=== PATIENT | female | born 1955 | race Caucasian/White ===

== ENCOUNTER 2020-02-07 12:50 | Inpatient (IN) ==
[2020-02-07] MEDS ORDERED: SODIUM CHLORIDE 0.9% 1,000 ML IV STA ×2 (13:20→14:26)
[2020-02-07 13:43] LABS: Basophils # 0.1 10*3/uL (0.0-0.2); Basophils % 0.6 % (0.0-0.8); Eosinophils # 0.3 10*3/uL (0.0-0.87); Eosinophils % 2.1 % (0.00-10.9); Hematocrit 32.6 VOL% (35.7-47.0); Hemoglobin 10.6 GM/DL (12.0-16.0); Immature Granulocytes % 0.8 %; Lymphocytes # 2.7 10*3/uL (1.4-4.0); Lymphocytes % 21.5 % (21.3-54.2); Mean Corpuscular HGB Conc 32.5 GM/DL (32-36); Mean Corpuscular Volume 88.3 FL (87-102); Mean Platelet Volume 8.6 FL (9.6-12.0); Monocytes % 7.8 % (1.7-12.7); Neutrophils % 67.2 % (38.7-73.9); Platelet Count 406 T/CUMM (130-400); Red Blood Count 3.69 MC/CUMM (3.8-5.5); White Blood Count 12.6 T/CUMM (4-12)
[2020-02-07 14:02] LABS: INR 1.3; Partial Thromboplastin Time 30.7 SECS (23.9-33.8)
[2020-02-07 14:16] LABS: Albumin 1.9 G/DL (3.4-5.0); Bilirubin,Total 0.6 MG/DL (0.2-1.0); Calcium 8.8 MG/DL (8.5-10.1); Osmolality,Calculated 273.1 MOS/KG (273-304); Thyroid Stimulating Hormone 8.5 uIU/ml (0.358-3.74); Total Protein 6.9 G/DL (6.4-8.3)
[2020-02-07 14:33] LABS: Bilirubin,Urine Negative (Negative); Blood, Urine Small mg/dL (Negative); Glucose,Urine (UA) Negative (Negative); Ketones,Urine Negative (Negative); Nitrite,Urine Negative (Negative); Protein,Urine 100 MG/DL; Urine Appearance CLOUDY (Clear); Urine Color Yellow (Yellow); Urine Urobilinogen < 2.0 EU/DL (0.2-1.0); WBC,Urine 2135 /HPF (0-6)
[2020-02-07] MEDS ORDERED: cefTRIAXone 1,000 MG in SODIUM CHLORIDE 0.9% 100 ML IV STA (14:43)
[2020-02-07] MEDS ORDERED: DEXTROSE 50% 25 GM/50 ML VIAL IV STA (14:45)
[2020-02-07] MEDS ORDERED: INSULIN REGULAR 100 UNIT/ML IV STA (14:46)
[2020-02-07] MEDS ORDERED: SODIUM BICARBONATE 50 MEQ/50 ML VIAL IV STA (14:47)
[2020-02-07] MEDS ORDERED: CALCIUM CHLORIDE 1,000 MG/10 ML SYRINGE IV STA (14:47)
[2020-02-07 14:48] LABS: Barbiturates Screen,Urine Negative (Negative); Benzodiazepines Screen,Urine Negative (Negative); Cannabinoid Screen,Urine Negative (Negative); Opiate Screen,Urine Negative (Negative); Phencyclidine Screen,Urine Negative (Negative)
[2020-02-07] MEDS ORDERED: DEXTROSE 50% 25 GM/50 ML SYRINGE IV ONE (15:05)
[2020-02-07] MEDS ORDERED: COSYNTROPIN 0.25 MG VIAL IV ONE (15:15)
[2020-02-07] MEDS ORDERED: DEXTROSE 50% 25 GM/50 ML VIAL IV PRN (15:18)
[2020-02-07] MEDS ORDERED: ACETAMINOPHEN 325 MG TABLET PO PRN (15:20)
[2020-02-07 15:47] LABS: Free T4 (Free Thyroxine) 1.38 NG/DL (0.76-1.46)
[2020-02-07] MEDS ORDERED: ENOXAPARIN 40 MG/0.4 ML SYRINGE SUBCUT SCH (16:00)
[2020-02-07] MEDS: SODIUM CHLORIDE 0.9% 1,000 ML IV SCH (17:20)
[2020-02-07] MEDS: HYDROCORTISONE 100 MG VIAL IV SCH (17:25)
[2020-02-07] MEDS ORDERED: HYDROCORTISONE 100 MG VIAL ONE (17:28)
[2020-02-07] MEDS ORDERED: INFLUENZA VIRUS VACCINE 0.5 ML SYRINGE IM ONE (18:00)
[2020-02-07 20:34] LABS: Calcium 8.9 MG/DL (8.5-10.1)
[2020-02-08] MEDS: HYDROCORTISONE 100 MG VIAL IV SCH (02:15)
[2020-02-08] MEDS: SODIUM CHLORIDE 0.9% 1,000 ML IV SCH ×4 (02:39→11:30)
[2020-02-08] MEDS ORDERED: SODIUM CHLORIDE 0.9% 1,000 ML IV ONE (03:00)
[2020-02-08 04:26] LABS: Basophils % 0.2 % (0.0-0.8); Hematocrit 31.1 VOL% (35.7-47.0); Hemoglobin 9.5 GM/DL (12.0-16.0); Immature Granulocytes % 0.9 %; Immature Granulocytes Absolute 0.08 #; Lymphocytes # 1.5 10*3/uL (1.4-4.0); Lymphocytes % 17.6 % (21.3-54.2); Mean Corpuscular HGB Conc 30.5 GM/DL (32-36); Mean Corpuscular Volume 92.3 FL (87-102); Mean Platelet Volume 8.7 FL (9.6-12.0); Monocytes % 2.5 % (1.7-12.7); Neutrophils % 78.8 % (38.7-73.9); Platelet Count 404 T/CUMM (130-400); Red Blood Count 3.37 MC/CUMM (3.8-5.5); Red Cell Distribution Width 17.3 % (9.3-17.3); White Blood Count 8.5 T/CUMM (4-12)
[2020-02-08 04:52] LABS: Calcium 8.5 MG/DL (8.5-10.1)
[2020-02-08] MEDS ORDERED: MAGNESIUM SULF RIDER 4 GM in PREMIX 1 EACH IV PRN (08:10)
[2020-02-08] MEDS ORDERED: SODIUM POLYSTYRENE SULFATE 15 GM/60 ML BOTTLE PO ONE (08:30)
[2020-02-08] MEDS ORDERED: cefTRIAXone 2,000 MG in SYRINGE 1 EACH IV SCH (09:00)
[2020-02-08] MEDS: INSULIN LISPRO 100 UNIT/ML SUBCUT SCH ×3 (12:02→21:14)
[2020-02-08] MEDS: ONDANSETRON 4 MG/2 ML VIAL IV PRN (13:37)
[2020-02-08] MEDS: PIPERACILLIN/TAZOBACTAM 3,375 MG in SODIUM CHLORIDE 0.9% 100 ML IV SCH ×2 (13:38→21:13)
[2020-02-08] MEDS: MAGNESIUM SULF RIDER 2 GM in PREMIX 1 EACH IV PRN (13:39)
[2020-02-08] MEDS ORDERED: PHENYLEPHRINE DRIP 40 MG/250 ML PREMIX IV ONE (15:03)
[2020-02-08] MEDS: SODIUM BICARB INJ 50 MEQ in SODIUM CHLORIDE 0.45% 1,000 ML IV SCH (15:22)
[2020-02-08] MEDS: PHENYLEPHRINE DRIP 40 MG/250 ML PREMIX IV PRN (15:27)
[2020-02-08] MEDS ORDERED: ENOXAPARIN 30 MG/0.3 ML SYRINGE SUBCUT SCH (16:00)
[2020-02-08] MEDS: ALBUTEROL 2.5 MG/3 ML NEB RESP TX PRN (19:56)
[2020-02-08] MEDS: DESITIN 4OZ/NYSTATIN 15 GRAM MIXTURE PASTE TOP SCH (21:13)
[2020-02-09] MEDS: SODIUM BICARB INJ 50 MEQ in SODIUM CHLORIDE 0.45% 1,000 ML IV SCH ×2 (01:32→12:17)
[2020-02-09] MEDS: ALBUTEROL 2.5 MG/3 ML NEB RESP TX PRN (03:52)
[2020-02-09] MEDS: PIPERACILLIN/TAZOBACTAM 3,375 MG in SODIUM CHLORIDE 0.9% 100 ML IV SCH ×3 (04:19→21:35)
[2020-02-09 04:50] LABS: Calcium 8.1 MG/DL (8.5-10.1); Osmolality,Calculated 281.1 MOS/KG (273-304)
[2020-02-09] MEDS: PHENYLEPHRINE DRIP 40 MG/250 ML PREMIX IV PRN (04:50)
[2020-02-09 05:02] LABS: Basophils % 0.2 % (0.0-0.8); Eosinophils # 0.1 10*3/uL (0.0-0.87); Eosinophils % 0.5 % (0.00-10.9); Hematocrit 28.4 VOL% (35.7-47.0); Hemoglobin 9.1 GM/DL (12.0-16.0); Immature Granulocytes % 0.7 %; Immature Granulocytes Absolute 0.07 #; Lymphocytes # 2.4 10*3/uL (1.4-4.0); Lymphocytes % 25.4 % (21.3-54.2); Mean Corpuscular Volume 89.6 FL (87-102); Mean Platelet Volume 8.6 FL (9.6-12.0); Monocytes % 6.8 % (1.7-12.7); Neutrophils % 66.4 % (38.7-73.9); Platelet Count 403 T/CUMM (130-400); Red Blood Count 3.17 MC/CUMM (3.8-5.5); Red Cell Distribution Width 17.2 % (9.3-17.3); White Blood Count 9.4 T/CUMM (4-12)
[2020-02-09] MEDS: MAGNESIUM SULF RIDER 2 GM in PREMIX 1 EACH IV PRN (08:20)
[2020-02-09] MEDS: INSULIN LISPRO 100 UNIT/ML SUBCUT SCH ×4 (08:52→22:03)
[2020-02-09] MEDS: DESITIN 4OZ/NYSTATIN 15 GRAM MIXTURE PASTE TOP SCH ×2 (09:02→21:21)
[2020-02-09] MEDS ORDERED: FUROSEMIDE 40 MG/4 ML VIAL IV ONE (10:02)
[2020-02-09] MEDS ORDERED: DILTIAZEM 50 MG/10 ML VIAL IV ONE ×2 (13:35)
[2020-02-09] MEDS ORDERED: DILTIAZEM 25 MG/5 ML VIAL IV ONE (13:39)
[2020-02-09] MEDS: CITALOPRAM 20 MG TABLET PO SCH ×2 (14:28→21:21)
[2020-02-09] MEDS: dilTIAZem Drip 125 MG/125 ML PREMIX IV SCH (14:34)
[2020-02-09] MEDS: NICOTINE 21 MG/24 HR PATCH TRANSDERM SCH (16:20)
[2020-02-09] MEDS ORDERED: DIGOXIN 0.5 MG/2 ML AMP IV ONE (16:50)
[2020-02-09] MEDS: METOPROLOL TARTRATE 25 MG TABLET PO SCH ×2 (17:32→21:21)
[2020-02-09] MEDS ORDERED: LEVALBUTEROL 1.25 MG/3 ML NEB RESP TX PRN (19:16)
[2020-02-09] MEDS: APIXABAN 5 MG TABLET PO SCH (21:21)
[2020-02-10] MEDS: dilTIAZem Drip 125 MG/125 ML PREMIX IV SCH (04:00)
[2020-02-10 04:26] LABS: Basophils % 0.3 % (0.0-0.8); Eosinophils # 0.1 10*3/uL (0.0-0.87); Eosinophils % 0.9 % (0.00-10.9); Hematocrit 27.1 VOL% (35.7-47.0); Hemoglobin 8.8 GM/DL (12.0-16.0); Immature Granulocytes % 0.5 %; Immature Granulocytes Absolute 0.04 #; Lymphocytes # 1.9 10*3/uL (1.4-4.0); Lymphocytes % 23.1 % (21.3-54.2); Mean Corpuscular HGB Conc 32.5 GM/DL (32-36); Mean Corpuscular Volume 87.1 FL (87-102); Mean Platelet Volume 8.4 FL (9.6-12.0); Monocytes % 6.6 % (1.7-12.7); Neutrophils % 68.6 % (38.7-73.9); Platelet Count 348 T/CUMM (130-400); Red Blood Count 3.11 MC/CUMM (3.8-5.5); Red Cell Distribution Width 17.1 % (9.3-17.3)
[2020-02-10 04:34] LABS: Alanine Aminotransferase < 9 U/L (13-56); Albumin 1.4 G/DL (3.4-5.0); Alkaline Phosphatase 47 U/L (45-117); Aspartate Amino Transferase 10 U/L (0-37); Blood Urea Nitrogen 36 MG/DL (7-18); Calcium 8.2 MG/DL (8.5-10.1); Estimated Glom Filtration Rate 42 ML/MIN; Glucose 135 MG/DL (74-106); Osmolality,Calculated 284.7 MOS/KG (273-304); Total Protein 5.4 G/DL (6.4-8.3)
[2020-02-10] MEDS: SKIN HEALING OINT (AQUAPHOR) 50 GM TUBE TOP PRN ×3 (06:25→21:16)
[2020-02-10] MEDS: PIPERACILLIN/TAZOBACTAM 3,375 MG in SODIUM CHLORIDE 0.9% 100 ML IV SCH ×2 (06:35→13:06)
[2020-02-10] MEDS: INSULIN LISPRO 100 UNIT/ML SUBCUT SCH ×4 (07:16→21:08)
[2020-02-10] MEDS: MAGNESIUM SULF RIDER 2 GM in PREMIX 1 EACH IV PRN (09:34)
[2020-02-10] MEDS: POTASSIUM CHLORIDE 20 MEQ TABLET PO PRN ×4 (09:34→17:18)
[2020-02-10] MEDS: METOPROLOL TARTRATE 25 MG TABLET PO SCH (09:35)
[2020-02-10] MEDS: APIXABAN 5 MG TABLET PO SCH ×2 (09:35→21:07)
[2020-02-10] MEDS: NICOTINE 21 MG/24 HR PATCH TRANSDERM SCH (09:35)
[2020-02-10] MEDS: CITALOPRAM 20 MG TABLET PO SCH ×2 (09:35→21:07)
[2020-02-10] MEDS: DESITIN 4OZ/NYSTATIN 15 GRAM MIXTURE PASTE TOP SCH ×2 (09:36→21:18)
[2020-02-10] MEDS: ONDANSETRON 4 MG/2 ML VIAL IV PRN (09:43)
[2020-02-10] MEDS ORDERED: PHENYLEPHRINE DRIP 40 MG/250 ML PREMIX IV PRN (10:18)
[2020-02-10] MEDS ORDERED: DIGOXIN 0.125 MG TABLET PO SCH (13:00)
[2020-02-10] MEDS ORDERED: dilTIAZem INJ 125 MG in SODIUM CHLORIDE 0.9% 125 MG/100 ML BAG IV SCH (14:00)
[2020-02-10] MEDS: FENOFIBRATE 145 MG TABLET PO SCH (16:13)
[2020-02-10] MEDS: MORPHINE 4 MG/1 ML VIAL IV PRN ×2 (16:13→21:04)
[2020-02-10] MEDS: SIMVASTATIN 20 MG TABLET PO SCH (16:13)
[2020-02-10] MEDS ORDERED: LEVOFLOXACIN INJ 500 MG in PREMIX 1 EACH IV ONE (17:00)
[2020-02-10] MEDS: METOPROLOL TARTRATE 50 MG TABLET PO SCH (21:07)
[2020-02-10] MEDS: VANCOMYCIN INJ 1,250 MG in SODIUM CHLORIDE 0.9% 250 ML IV SCH (21:08)
[2020-02-11 04:13] LABS: Basophils # 0.1 10*3/uL (0.0-0.2); Basophils % 0.7 % (0.0-0.8); Eosinophils # 0.2 10*3/uL (0.0-0.87); Eosinophils % 2.3 % (0.00-10.9); Hematocrit 29.6 VOL% (35.7-47.0); Hemoglobin 9.4 GM/DL (12.0-16.0); Immature Granulocytes % 0.6 %; Immature Granulocytes Absolute 0.04 #; Lymphocytes # 1.8 10*3/uL (1.4-4.0); Lymphocytes % 25.7 % (21.3-54.2); Mean Corpuscular HGB Conc 31.8 GM/DL (32-36); Mean Corpuscular Volume 88.9 FL (87-102); Mean Platelet Volume 8.5 FL (9.6-12.0); Monocytes % 7.9 % (1.7-12.7); Neutrophils % 62.8 % (38.7-73.9); Platelet Count 353 T/CUMM (130-400); Red Blood Count 3.33 MC/CUMM (3.8-5.5); Red Cell Distribution Width 17.6 % (9.3-17.3); White Blood Count 6.9 T/CUMM (4-12)
[2020-02-11 04:53] LABS: Calcium 8.3 MG/DL (8.5-10.1); Osmolality,Calculated 278.8 MOS/KG (273-304)
[2020-02-11] MEDS: INSULIN LISPRO 100 UNIT/ML SUBCUT SCH ×4 (08:00→20:57)
[2020-02-11] MEDS: DIGOXIN 0.125 MG TABLET PO SCH (10:11)
[2020-02-11] MEDS: METOPROLOL TARTRATE 50 MG TABLET PO SCH ×2 (10:11→20:58)
[2020-02-11] MEDS: CITALOPRAM 20 MG TABLET PO SCH ×2 (10:11→20:58)
[2020-02-11] MEDS: NICOTINE 21 MG/24 HR PATCH TRANSDERM SCH (10:11)
[2020-02-11] MEDS: APIXABAN 5 MG TABLET PO SCH ×2 (10:11→20:57)
[2020-02-11] MEDS: DESITIN 4OZ/NYSTATIN 15 GRAM MIXTURE PASTE TOP SCH ×2 (10:13→20:59)
[2020-02-11] MEDS: LEVOFLOXACIN INJ 250 MG in PREMIX 1 EACH IV SCH (17:43)
[2020-02-11] MEDS: FENOFIBRATE 145 MG TABLET PO SCH (17:43)
[2020-02-11] MEDS: SIMVASTATIN 20 MG TABLET PO SCH (17:43)
[2020-02-11] MEDS: VANCOMYCIN INJ 1,250 MG in SODIUM CHLORIDE 0.9% 250 ML IV SCH (20:58)
[2020-02-11] MEDS: SKIN HEALING OINT (AQUAPHOR) 50 GM TUBE TOP PRN (20:59)
[2020-02-12 04:40] LABS: Basophils # 0.1 10*3/uL (0.0-0.2); Basophils % 0.9 % (0.0-0.8); Eosinophils # 0.2 10*3/uL (0.0-0.87); Eosinophils % 3.1 % (0.00-10.9); Hematocrit 28.6 VOL% (35.7-47.0); Hemoglobin 9.2 GM/DL (12.0-16.0); Immature Granulocytes % 0.6 %; Immature Granulocytes Absolute 0.04 #; Lymphocytes # 2.3 10*3/uL (1.4-4.0); Lymphocytes % 36.4 % (21.3-54.2); Mean Corpuscular HGB Conc 32.2 GM/DL (32-36); Mean Corpuscular Volume 89.1 FL (87-102); Mean Platelet Volume 8.5 FL (9.6-12.0); Monocytes % 8.8 % (1.7-12.7); Neutrophils % 50.2 % (38.7-73.9); Platelet Count 359 T/CUMM (130-400); Red Blood Count 3.21 MC/CUMM (3.8-5.5); Red Cell Distribution Width 17.2 % (9.3-17.3); White Blood Count 6.4 T/CUMM (4-12)
[2020-02-12 05:00] LABS: Calcium 8.4 MG/DL (8.5-10.1); Osmolality,Calculated 271.1 MOS/KG (273-304)
[2020-02-12 05:27] LABS: Eosinophils 2 % (0-10); Lymphocytes 35 % (20-55); Platelet Estimate Adequate; Segmented Neutrophils 55 % (50-85); Total Cells Counted 100
[2020-02-12 05:28] LABS: Hypochromasia 1+; Microcytosis Slight
[2020-02-12] MEDS: INSULIN LISPRO 100 UNIT/ML SUBCUT SCH ×4 (07:50→20:59)
[2020-02-12] MEDS: APIXABAN 5 MG TABLET PO SCH ×2 (08:53→20:45)
[2020-02-12] MEDS: METOPROLOL TARTRATE 50 MG TABLET PO SCH ×2 (08:53→20:45)
[2020-02-12] MEDS: NICOTINE 21 MG/24 HR PATCH TRANSDERM SCH (08:53)
[2020-02-12] MEDS: DIGOXIN 0.125 MG TABLET PO SCH (08:53)
[2020-02-12] MEDS: CITALOPRAM 20 MG TABLET PO SCH ×2 (08:53→20:45)
[2020-02-12] MEDS: DESITIN 4OZ/NYSTATIN 15 GRAM MIXTURE PASTE TOP SCH ×2 (08:55→20:45)
[2020-02-12] MEDS: POTASSIUM CHLORIDE 20 MEQ TABLET PO PRN (10:23)
[2020-02-12] MEDS: FUROSEMIDE 20 MG TABLET PO SCH (10:23)
[2020-02-12] MEDS: ONDANSETRON 4 MG/2 ML VIAL IV PRN (12:37)
[2020-02-12] MEDS: LEVOFLOXACIN INJ 250 MG in PREMIX 1 EACH IV SCH (17:34)
[2020-02-12] MEDS: SIMVASTATIN 20 MG TABLET PO SCH (17:35)
[2020-02-12] MEDS: FENOFIBRATE 145 MG TABLET PO SCH (17:35)
[2020-02-12] MEDS ORDERED: DILTIAZEM 25 MG/5 ML VIAL IV ONE (18:37)
[2020-02-12] MEDS: VANCOMYCIN INJ 1,250 MG in SODIUM CHLORIDE 0.9% 250 ML IV SCH (21:08)
[2020-02-13 05:25] LABS: Basophils % 0.4 % (0.0-0.8); Eosinophils # 0.2 10*3/uL (0.0-0.87); Eosinophils % 2.1 % (0.00-10.9); Hematocrit 30.2 VOL% (35.7-47.0); Hemoglobin 9.6 GM/DL (12.0-16.0); Immature Granulocytes % 0.5 %; Immature Granulocytes Absolute 0.05 #; Lymphocytes # 2.9 10*3/uL (1.4-4.0); Lymphocytes % 31.5 % (21.3-54.2); Mean Corpuscular HGB Conc 31.8 GM/DL (32-36); Mean Corpuscular Volume 89.1 FL (87-102); Mean Platelet Volume 8.5 FL (9.6-12.0); Monocytes % 8.2 % (1.7-12.7); Neutrophils % 57.3 % (38.7-73.9); Platelet Count 352 T/CUMM (130-400); Red Blood Count 3.39 MC/CUMM (3.8-5.5); Red Cell Distribution Width 17.2 % (9.3-17.3); White Blood Count 9.1 T/CUMM (4-12)
[2020-02-13 06:03] LABS: Calcium 8.1 MG/DL (8.5-10.1); Osmolality,Calculated 277.2 MOS/KG (273-304)
[2020-02-13] MEDS: FUROSEMIDE 20 MG TABLET PO SCH (08:47)
[2020-02-13] MEDS: DIGOXIN 0.125 MG TABLET PO SCH (08:47)
[2020-02-13] MEDS: APIXABAN 5 MG TABLET PO SCH (08:48)
[2020-02-13] MEDS: NICOTINE 21 MG/24 HR PATCH TRANSDERM SCH (08:48)
[2020-02-13] MEDS: CITALOPRAM 20 MG TABLET PO SCH (08:48)
[2020-02-13] MEDS: POTASSIUM CHLORIDE 20 MEQ TABLET PO PRN (08:48)
[2020-02-13] MEDS: METOPROLOL TARTRATE 50 MG TABLET PO SCH (08:48)
[2020-02-13] MEDS ORDERED: POTASSIUM CHLORIDE 20 MEQ TABLET PO ONE (09:51)
[2020-02-13] MEDS ORDERED: MAGNESIUM SULF RIDER 2 GM in PREMIX 1 EACH IV ONE (09:51)
[2020-02-13] MEDS ORDERED: LEVOFLOXACIN 500 MG TABLET PO SCH (10:00)
[2020-02-13] MEDS: DOXYCYCLINE HYCLATE 100 MG CAPSULE PO SCH (10:09)
[2020-02-13] MEDS: AMIODARONE 200 MG TABLET PO SCH (10:09)
[2020-02-13] MEDS: DESITIN 4OZ/NYSTATIN 15 GRAM MIXTURE PASTE TOP SCH (10:10)
[2020-02-13] MEDS: INSULIN LISPRO 100 UNIT/ML SUBCUT SCH ×3 (10:10→18:12)
[2020-02-13] MEDS ORDERED: AMIODARONE INJ 150 MG in DEXTROSE 5% 100 ML IV ONE (10:17)
[2020-02-13] MEDS ORDERED: AMIODARONE INJ 450 MG in DEXTROSE 5% 241 ML IV SCH (10:30)
[2020-02-13] MEDS: FENOFIBRATE 145 MG TABLET PO SCH (18:13)
[2020-02-13] MEDS: SIMVASTATIN 20 MG TABLET PO SCH (18:13)
[2020-02-14] MEDS: METOPROLOL TARTRATE 50 MG TABLET PO SCH ×2 (00:19→08:58)
[2020-02-14] MEDS: APIXABAN 5 MG TABLET PO SCH ×2 (00:19→08:57)
[2020-02-14] MEDS: DESITIN 4OZ/NYSTATIN 15 GRAM MIXTURE PASTE TOP SCH ×2 (00:19→08:59)
[2020-02-14] MEDS: INSULIN LISPRO 100 UNIT/ML SUBCUT SCH ×4 (00:19→17:33)
[2020-02-14] MEDS: DOXYCYCLINE HYCLATE 100 MG CAPSULE PO SCH ×2 (00:20→08:56)
[2020-02-14] MEDS: ONDANSETRON 4 MG/2 ML VIAL IV PRN (00:45)
[2020-02-14 06:03] LABS: Calcium 8.1 MG/DL (8.5-10.1); Osmolality,Calculated 270.4 MOS/KG (273-304)
[2020-02-14] MEDS ORDERED: POTASSIUM CHLORIDE 20 MEQ TABLET PO ONE ×2 (08:07→09:46)
[2020-02-14] MEDS: DIGOXIN 0.125 MG TABLET PO SCH (08:57)
[2020-02-14] MEDS: NICOTINE 21 MG/24 HR PATCH TRANSDERM SCH (08:58)
[2020-02-14] MEDS: AMIODARONE 200 MG TABLET PO SCH ×2 (09:11→09:30)
[2020-02-14] MEDS ORDERED: DIGOXIN 0.5 MG/2 ML AMP IV ONE (09:56)
[2020-02-14] MEDS ORDERED: SODIUM CHLORIDE 0.9% 500 ML IV ONE (10:54)
[2020-02-14] MEDS ORDERED: ASCORBIC ACID 500 MG TABLET PO SCH (14:11)
[2020-02-14] MEDS ORDERED: BISOPROLOL 5 MG TABLET PO ONE (15:28)
[2020-02-14] MEDS: FENOFIBRATE 145 MG TABLET PO SCH (16:46)
[2020-02-14] MEDS: SIMVASTATIN 20 MG TABLET PO SCH (16:47)
[2020-02-14 16:52] VITALS: BP 120/58
[2020-02-14] MEDS ORDERED: GLIMEPIRIDE 4 MG TABLET PO SCH ×2 (17:00)
[2020-02-14] MEDS ORDERED: BISOPROLOL 5 MG TABLET PO SCH (21:00)
[2020-02-15] MEDS ORDERED: INSULIN NPH/REGULAR 70/30 100 UNIT/ML SUBCUT SCH (14:00)
== END 2020-02-14 17:43 | disposition home or self-care (01) | DRG 988 ==
LOC: N.ED 12:50 → N.EDINP 15:20 → SUATTDRO 15:20 → N.ICU 17:17 → N.TELEN 02-12 09:55
PROVIDERS: ADMIT Internal Medicine; ATTEND Internal Medicine